=== PATIENT | female | born 1965 | race Caucasian/White ===

== ENCOUNTER 2018-12-08 09:15 | Inpatient (IN) | payer OTHER ==
[~2018-12-08] VITALS: Ht 167.6 cm; Wt 95.3 kg
== END 2018-12-19 12:09 | DRG 743 ==
LOC: SURH 12-15 07:00 → OB/GYN 12-15 08:06 → O/R 12-15 08:06 → SURH 12-15 09:15 → OB/GYN 12-15 15:35
PROVIDERS: ADMIT Obstetrics & Gynecology
PROC: 0UT00ZZ Resection of Right Ovary, Open Approach (ICD-10-PCS; 2018-12-15)
PROC: 0UT70ZZ Resection of Bilateral Fallopian Tubes, Open Approach (ICD-10-PCS; 2018-12-15)
PROC: 0UT90ZZ Resection of Uterus, Open Approach (ICD-10-PCS; principal; 2018-12-15 07:00)
DX: D25.1 Intramural leiomyoma of uterus (principal); D25.2 Subserosal leiomyoma of uterus; R87.613 High grade squamous intraepithelial lesion on cytologic smear of cervix (HGSIL); N80.0 Endometriosis of uterus